=== PATIENT | female | born 1945 | race Caucasian/White ===

== ENCOUNTER 2016-10-11 08:26 | Emergency (ER) | payer MEDICARE ==
[~2016-10-11] VITALS: Wt 59.9 kg
[~2016-10-11 08:26] MED LIST: CITALOPRAM20 MG PO; ELITE MAGNESIUM1 TAB PO; FOSAMAX70 M1 PO; HYDROCHLOROTHIA25 MG PO; HYDROCODONE BIT1 T11 PO; LISINOPRIL2.5 MG PO; LOVASTATIN10 MG PO; MAGNESIUM; METFORMIN1000 MG PO; METOPROLOL25 MG PO; Motrin,Rufen800 MG PO; OMEGA-3 FISH1200 MG PO; Orphenadrine C100 MG PO; PLAVIX75 MG PO; PREDNICOT20 MG PO; PRILOSEC40 M1 PO; ROBITUSSIN AC 110 ML PO; SUPER B COMPLEX1 CAP PO; TOVIAZ4 MG PO; VIBRAMYCIN100 MG PO; VITAMIN D31000 IU PO
== END 2016-10-11 09:45 | disposition home or self-care (01) ==
LOC: ED 08:26
DX: S62.603A Fracture of unspecified phalanx of left middle finger, initial encounter for closed fracture (principal); F17.200 Nicotine dependence, unspecified, uncomplicated; Z88.0 Allergy status to penicillin; Z79.899 Other long term (current) drug therapy; W22.03XA Walked into furniture, initial encounter; Y93.9 Activity, unspecified; Y92.9 Unspecified place or not applicable; Y99.9 Unspecified external cause status

== ENCOUNTER → 2016-10-21 | Outpatient (CLI) | payer MEDICARE | END | disposition home or self-care (01) | LOC: RAD 10:09 | DX: S62.603D Fracture of unspecified phalanx of left middle finger, subsequent encounter for fracture with routine healing (principal); R53.83 Other fatigue; X58.XXXD Exposure to other specified factors, subsequent encounter ==

== ENCOUNTER → 2016-12-17 | Outpatient (CLI) | payer MEDICARE ==
[2016-12-17 09:22] LABS: EST GLOM FILT AFRICAN AMERICAN > 60 ml/min
== END | disposition home or self-care (01) ==
LOC: LAB 08:40
PROVIDERS: Internal Medicine
DX: M47.894 Other spondylosis, thoracic region (principal); M54.5 Low back pain; M54.6 Pain in thoracic spine

== ENCOUNTER → 2016-12-22 | Outpatient (CLI) | payer MEDICARE | END | disposition home or self-care (01) | LOC: CT 07:33 | DX: R42 Dizziness and giddiness (principal); R20.0 Anesthesia of skin ==

== ENCOUNTER 2017-10-12 19:45 | Inpatient (IN) | payer MEDICARE ==
[~2017-10-12] VITALS: Ht 152.4 cm; Wt 60.5 kg
--- NOTE | ~2017-10-12 | EKG ---
[place], [place] ELECTROCARDIOGRAM REPORT NAME: KARINA COLEY UNIT #: [id number] ROOM: 406 DOCTOR: MICHELL LOPEZ MD BIRTHDATE: [birth year] DOS: 10/12/2017 TIME: 2100. ASSESSMENT: Sinus rhythm, left ventricular hypertrophy, abnormal ECG. No prior EKGs to compare. Michell Lopez MD CM:EKGRPT:ELECTROCARDIOGRAM REPORT 09 20 MICHELL LOPEZ MD
--- NOTE | ~2017-10-12 | PR ---
[place], [place] PROGRESS NOTE [id number] UNIT #: [id number] ROOM: 406 DOCTOR: LELA FINLEY MD BIRTHDATE: [birth year] DOS: SUBJECTIVE: The patient is doing much better. She had taken extra clonidine and became hypotensive and was admitted. She does not have any new complaints of chest pains, palpitations or shortness of breath. OBJECTIVE: VITAL SIGNS: Graphic trend shows that she is afebrile, blood pressure is 140/69, pulse of 58, respirations 18, temperature 98.2. LUNGS: Clear. HEART: Regular. ABDOMEN: Soft. EXTREMITIES: Without any edema. ASSESSMENT AND PLAN: 1. Hypotension, medication induced, which has resolved. 2. History of benign hypertension. Restart a low dose lisinopril. 3. Type 2 diabetes mellitus. Blood sugar is not very well controlled. Restart metformin at a lower dose. 4. History of a transient ischemic attack. She had a CT scan of the head, which was negative this admission. LELA FINLEY MD CM:PNTRANS LELA FINLEY MD 10/14/17 0933 interface
--- NOTE | ~2017-10-12 | WRIGHTHP ---
[place], [place] PATIENT HISTORY AND PHYSICAL EXAM NAME: KARINA COLEY [facility] #: [id number] UNIT #: [id number] ROOM: 406 DOCTOR: VISHNU WESTON MD BIRTHDATE: [birth year] DOS: 10/12/2017 HISTORY OF PRESENT ILLNESS: The patient is a 72-year-old female with a past medical history of: 1. Benign essential hypertension. 2. History of orthostatic hypotension. 3. Echocardiogram showing moderate LVH and stage 1 diastolic dysfunction. The patient is with history of TIA. 4. History of mixed hyperlipidemia. The patient presented to the Emergency Department at [facility] feeling dizzy, lightheaded, and weak, but without fainting episodes. The patient found her blood pressure at home to be very low and it was 76 systolic over 62 diastolic on her machine at home. The patient was somewhat pale and lethargic in the Emergency Room. The patient apparently had taken an extra dose of clonidine at home by mistake in the morning. She took her first dose around 7 in the morning and the second dose around 9 in the morning. 5. For hypotension and being symptomatic and feeling unwell she was recommended for admission and further management. After admission, her clonidine was stopped and she is asymptomatic, but when she gets up her blood pressure still drops to around 75 systolic. The patient is ambulating normally in the hallways. HOME MEDICATIONS: The patient takes metformin, metoprolol, and Plavix at home. FAMILY HISTORY: Noncontributory. ALLERGIES: KNOWN ALLERGIES TO PENICILLIN. PHYSICAL EXAMINATION: GENERAL: Alert and oriented x 3, in no visible distress, slightly obese. HEENT AND NECK: Extraocular movements are intact. Sclerae are anicteric. Oral mucosa is moist and clean. No obvious facial weakness. Neck is supple without any lymphadenopathy. No thyromegaly. No JVD. No carotid arterial bruits. LUNGS: Clear to auscultation. No wheezing. No rhonchi. CARDIOVASCULAR SYSTEM: Heart rate is regular in rate and rhythm. S1 and S2 normally audible. No significant murmur or any other abnormal cardiac sounds. ABDOMEN: Soft, nontender. No obvious organomegaly. Bowel sounds are present. No obvious herniation. EXTREMITIES: Without significant cyanosis or edema. Warm to touch. CENTRAL NERVOUS SYSTEM: Alert and oriented x 3. Cranial nerves II-XII are intact. Speech is normal. The patient is able to move all extremities. Normal muscle strength. Deep tendon reflexes are equal on both sides. Plantars were downgoing. LABORATORY DATA: EKG with normal sinus rhythm, no acute abnormality. Urine drug screen was negative. CT of the chest without acute abnormality. CT of the head without acute abdomen any acute abnormality. Chest x-ray with no acute findings. Normal serum electrolytes except for potassium of 3.3. Normal CBC and platelets. [place], [place] PATIENT HISTORY AND PHYSICAL EXAM NAME: KARINA COLEY UNIT #: [id number] ROOM: [facility] DOCTOR: VISHNU WESTON MD BIRTHDATE: [birth year] IMPRESSION AND PLAN: 1. The patient with hypotension related to taking an extra dose of clonidine by mistake in the morning and she was symptomatic with lightheadedness, dizziness and weakness, which has all resolved after clonidine was stopped and she was hydrated with normal saline. The patient is presently asymptomatic, but she is still orthostatic. When she stands up, her blood pressure drops from 126 systolic to 70 diastolic, but without symptoms. The patient does have history of chronic orthostatic hypotension. I will keep her off the clonidine and blood pressure medications and at 3:00 p.m. check her blood pressure and orthostatics again and then decide to send her home if she is asymptomatic. 2. History of major depression, recurrent, mild, treated with citalopram. 3. History of transient ischemic attack in the past. The patient remains on Plavix, which she was taking at home. 4. History of mixed hyperlipidemia. 5. Prediabetes. Hyperglycemia with sugar of 225. I will check her blood sugars during her stay at the hospital. She is not taking any diabetic medications at present time. 6. Benign essential hypertension. 7. Elevated lactic acid level at admission has normalized. VISHNU WESTON MD CM:HISPHYS:PATIENT HISTORY AND PHYSICAL EXAMINATION 1010 1050 VISHNU WESTON MD 10/13/17 1049 interface
[2017-10-12 19:55] VITALS: BP 76/62
[2017-10-12 20:09] VITALS: BP 90/62
[2017-10-12 20:33] LABS: BASO # 0.1 10*3/uL (0.0-0.1); BASO % 0.8 % (0.0-1.0); EOS # 1.2 10*3/uL (0.0-0.4); EOS % 11.1 % (1.0-4.0); HEMATOCRIT 40.7 % (37.0-47.0); HEMOGLOBIN 13.3 g/dl (12.0-16.0); LYMPH # 2.1 10*3/uL (1.3-4.4); LYMPH % 19.8 % (27.0-41.0); MEAN CELL VOLUME 95.3 fl (81.0-99.0); MEAN CORPUSCULAR HGB 31.1 pg (27.0-31.0); MEAN CORPUSCULAR HGB CONC 32.7 g/dl (33.0-37.0); MEAN PLATELET VOLUME 11.5 fl (9.6-12.3); MONO # 0.6 10*3/uL (0.1-1.0); MONO % 5.7 % (3.0-9.0); NEUT # 6.5 10*3/uL (2.3-7.9); NEUT % 62.2 % (47.0-73.0); PLATELET COUNT AUTOMATED 232 10*3/uL (130-400); RED BLOOD COUNT 4.27 10*6/uL (4.10-5.10); RED CELL DISTRI WIDTH 12.8 % (0-14.5); WHITE BLOOD COUNT 10.5 10*3/uL (4.8-10.8)
[2017-10-12 20:43] LABS: ACT PARTIAL THROMBO TIME 23.6 SECONDS (20.8-31.5)
[2017-10-12 20:48] LABS: ALKALINE PHOSPHATASE 90 U/L (45-117); BUN 7 mg/dl (7-24); CHLORIDE 99 mmol/L (98-107); CREATININE 0.93 mg/dL (0.55-1.02); LIPASE 218 U/L (73-393); POTASSIUM 3.3 mmol/L (3.5-5.1); SGOT/AST 19 IU/L (3-35); SGPT/ALT 16 U/L (12-78); SODIUM 138 mmol/L (136-145); TOTAL PROTEIN 6.8 gm/dL (6.4-8.2); TROPONIN I < 0.015 ng/ml (<0.045)
[2017-10-12 21:15] VITALS: BP 153/91
[2017-10-12 22:00] VITALS: BP 130/70
[2017-10-12 22:13] LABS: BILIRUBIN NEGATIVE (NEGATIVE); BLOOD TRACE-LYSED (NEGATIVE); CLARITY SL CLOUDY (CLEAR); COLOR YELLOW (YELLOW); GLUCOSE NEGATIVE (NEGATIVE); KETONE NEGATIVE (NEGATIVE); LEUKO ESTERASE NEGATIVE (NEGATIVE); NITRITE NEGATIVE (NEGATIVE); PH 6.5 (5.0-9.0); SPECIFIC GRAVITY <= 1.005 (1.005-1.030); UROBILINOGEN 0.2 E.U./dl (0.2-1.0)
[2017-10-12 22:20] LABS: URINE AMPHETAMINES < 1000 (1000ng/ml); URINE BARBITURATES < 200 (200ng/ml); URINE BENZODIAZEPINES < 200 (200ng/ml); URINE CANNABINOIDS (THC) < 50 (50ng/ml); URINE COCAINE < 300 (300ng/ml); URINE METHADONE < 300 (300ng/ml); URINE OPIATES < 300 (300ng/ml)
[2017-10-12 22:27] LABS: URINE PHENCYCLIDINE < 25 (25ng/ml)
[2017-10-12 22:30] VITALS: BP 133/65
[2017-10-12 22:50] LABS: RBC 0-2 rbc/hpf (0-2); WBC 0-2 wbc/hpf (0-5)
[2017-10-12 23:42] VITALS: BP 144/75
[2017-10-13] VITALS (9 sets, daily range): BP systolic 70–154; BP diastolic 52–77
[2017-10-13] MEDS ORDERED: CELEXA20 MG PO (00:46)
[2017-10-13] MEDS ORDERED: CLONIDINE HCL0.1 MG PO (00:46)
[2017-10-13] MEDS ORDERED: METFORMIN500 MG PO (16:13)
[2017-10-14] VITALS: BP 158/60
[2017-10-14 08:00] VITALS: BP 140/69
[2017-10-14] MEDS ORDERED: METFORMIN500 MG PO (09:09)
[2017-10-14] MEDS ORDERED: ZESTRIL2.5 MG PO (09:10)
== END 2017-10-14 11:10 | disposition home or self-care (01) | DRG 918 ==
LOC: ED 19:45 → 4E 23:27 → EDHOLD 23:27 → 4E 23:44
PROVIDERS: Nurse Practitioner Family
DX: T46.5X1A Poisoning by other antihypertensive drugs, accidental (unintentional), initial encounter (principal); E11.65 Type 2 diabetes mellitus with hyperglycemia; I95.2 Hypotension due to drugs; F33.0 Major depressive disorder, recurrent, mild; F17.200 Nicotine dependence, unspecified, uncomplicated; E78.2 Mixed hyperlipidemia; I10 Essential (primary) hypertension; Z79.899 Other long term (current) drug therapy; Z88.0 Allergy status to penicillin; Z79.84 Long term (current) use of oral hypoglycemic drugs; Z87.81 Personal history of (healed) traumatic fracture; Z86.73 Personal history of transient ischemic attack (TIA), and cerebral infarction without residual deficits; Z90.711 Acquired absence of uterus with remaining cervical stump; Y92.89 Other specified places as the place of occurrence of the external cause

== ENCOUNTER 2018-04-21 12:17 | Emergency (ER) | payer MEDICARE ==
[~2018-04-21] VITALS: Ht 152.4 cm; Wt 56.2 kg
[~2018-04-21 12:17] MED LIST changes: +CELEXA20 MG PO; +CLONIDINE HCL0.1 MG PO; +METFORMIN500 MG PO; +ZESTRIL2.5 MG PO
[2018-04-21] MEDS ORDERED: METOPROLOL SUCC25 M2 PO (12:20)
== END 2018-04-21 15:20 | disposition home or self-care (01) ==
LOC: ED 12:17
DX: S51.811A Laceration without foreign body of right forearm, initial encounter (principal); F17.200 Nicotine dependence, unspecified, uncomplicated; Z88.0 Allergy status to penicillin; Z79.899 Other long term (current) drug therapy; W01.0XXA Fall on same level from slipping, tripping and stumbling without subsequent striking against object, initial encounter; Y93.01 Activity, walking, marching and hiking; Y92.89 Other specified places as the place of occurrence of the external cause; Y99.8 Other external cause status

== ENCOUNTER → 2018-08-01 | Outpatient (CLI) | payer MEDICARE ==
[~2018-08-01] MED LIST changes: +METOPROLOL SUCC25 M2 PO
== END ==
LOC: MRI 10:21
DX: M84.351A Stress fracture, right femur, initial encounter for fracture (principal); M25.461 Effusion, right knee; X58.XXXA Exposure to other specified factors, initial encounter; Y93.89 Activity, other specified; Y92.89 Other specified places as the place of occurrence of the external cause; Y99.8 Other external cause status

== ENCOUNTER → 2018-11-01 | Outpatient (CLI) | payer MEDICARE | END | disposition home or self-care (01) | LOC: RAD 11:08 | DX: M81.0 Age-related osteoporosis without current pathological fracture (principal); M19.90 Unspecified osteoarthritis, unspecified site; E11.9 Type 2 diabetes mellitus without complications; E55.9 Vitamin D deficiency, unspecified; F17.200 Nicotine dependence, unspecified, uncomplicated; Z90.710 Acquired absence of both cervix and uterus; Z78.0 Asymptomatic menopausal state ==

== ENCOUNTER → 2018-11-15 | Outpatient (CLI) | payer MEDICARE ==
[~2018-11-15] MED LIST changes: +PREDNISONE50 MG PO; +VALTREX1000 MG PO
[2018-11-15 09:00] VITALS: BP 134/56
== END | disposition home or self-care (01) ==
LOC: INJECTION 08:58
DX: M81.0 Age-related osteoporosis without current pathological fracture (principal); I10 Essential (primary) hypertension; E11.9 Type 2 diabetes mellitus without complications; K21.9 Gastro-esophageal reflux disease without esophagitis; E78.00 Pure hypercholesterolemia, unspecified; F17.210 Nicotine dependence, cigarettes, uncomplicated; Z86.73 Personal history of transient ischemic attack (TIA), and cerebral infarction without residual deficits; Z90.711 Acquired absence of uterus with remaining cervical stump

== ENCOUNTER → 2019-11-22 | Day surgery (SDC) | payer MEDICARE ==
[~2019-11-22] MED LIST changes: +ASPIRIN CHEWABL81 MG PO; +MIRTAZAPINE15 M1 PO; +NEURONTIN100 MG PO; +OYSTER SHELL 51 EAC2 PO; +PROTONIX IV40 MG IV; +SIMVASTATIN5 MG PO
[2019-11-22 09:40] VITALS: BP 142/44
[2019-11-22 10:55] VITALS: BP 133/55
[2019-11-22 11:10] VITALS: BP 127/46
[2019-11-22 11:20] VITALS: BP 132/77
== END | disposition home or self-care (01) ==
LOC: SDC 11-21 14:45
DX: K92.1 Melena (principal); D12.3 Benign neoplasm of transverse colon; K22.2 Esophageal obstruction; K29.50 Unspecified chronic gastritis without bleeding; K57.30 Diverticulosis of large intestine without perforation or abscess without bleeding; I10 Essential (primary) hypertension; I25.10 Atherosclerotic heart disease of native coronary artery without angina pectoris; E11.9 Type 2 diabetes mellitus without complications; F17.210 Nicotine dependence, cigarettes, uncomplicated; Z98.890 Other specified postprocedural states; Z86.73 Personal history of transient ischemic attack (TIA), and cerebral infarction without residual deficits; Z79.899 Other long term (current) drug therapy

== ENCOUNTER → 2020-02-27 | Outpatient (CLI) | payer MEDICARE ==
[2020-02-27 10:19] LABS: HEMATOCRIT 43.6 % (37.0-47.0); MEAN CELL VOLUME 97.5 fl (81.0-99.0); MEAN CORPUSCULAR HGB 31.8 pg (27.0-31.0); MEAN CORPUSCULAR HGB CONC 32.6 g/dl (33.0-37.0); MEAN PLATELET VOLUME 11.2 fl (9.6-12.3); PLATELET COUNT AUTOMATED 232 10*3/uL (130-400); RED BLOOD COUNT 4.47 10*6/uL (4.10-5.10); RED CELL DISTRI WIDTH 13.3 % (0-14.5); WHITE BLOOD COUNT 9.9 10*3/uL (4.8-10.8)
[2020-02-27 10:47] LABS: CHLORIDE 104 mmol/L (98-107); POTASSIUM 4.6 mmol/L (3.5-5.1); SODIUM 139 mmol/L (136-145)
[2020-02-27 11:00] LABS: BASOPHILS 2 % (0-1); PLATELET SUFFICIENCY NORMAL (NORMAL); TOTAL CELLS COUNTED 100 #CELLS
[2020-02-27 11:02] LABS: ALBUMIN 3.4 gm/dl (3.1-4.5); ALKALINE PHOSPHATASE 107 U/L (45-117); BUN 14 mg/dl (7-24); CHOLESTEROL 196 mg/dL (<200); CREATININE 0.78 mg/dL (0.55-1.02); FREE T4 1.15 ng/dl (0.76-1.46); HDL CHOLESTEROL 38 mg/dl (40-60); LDL CHOLESTEROL 123 mg/dL (9-159); SGOT/AST 15 IU/L (3-35); SGPT/ALT 24 U/L (12-78); TOTAL PROTEIN 7.4 gm/dL (6.4-8.2); TRIGLYCERIDES 177 mg/dl (<150); VLDL CHOLESTEROL 35 mg/dL (6-40)
[2020-02-27 11:14] LABS: VITAMIN D, 25-HYDROXY 40.4 ng/mL (30-100)
== END | disposition home or self-care (01) ==
LOC: LAB 09:27
PROVIDERS: Internal Medicine
DX: Z00.00 Encounter for general adult medical examination without abnormal findings (principal); E11.9 Type 2 diabetes mellitus without complications; I10 Essential (primary) hypertension; E78.2 Mixed hyperlipidemia; E55.9 Vitamin D deficiency, unspecified

== ENCOUNTER → 2020-02-28 | Outpatient (CLI) | payer MEDICARE | END | disposition home or self-care (01) | LOC: US 08:05 | DX: I73.9 Peripheral vascular disease, unspecified (principal); I10 Essential (primary) hypertension; E11.9 Type 2 diabetes mellitus without complications; F17.200 Nicotine dependence, unspecified, uncomplicated ==

== ENCOUNTER → 2020-03-12 | Outpatient (CLI) | payer MEDICARE | END | disposition home or self-care (01) | LOC: CT 12:37 | DX: I73.9 Peripheral vascular disease, unspecified (principal) ==

== ENCOUNTER 2021-01-15 15:20 | Inpatient (IN) | payer MEDICARE ==
[~2021-01-15] VITALS: Ht 152.4 cm; Wt 58.5 kg
[2021-01-15 15:38] VITALS: BP 125/43
[2021-01-15 15:58] LABS: HEMATOCRIT 42.1 % (37.0-47.0); MEAN CELL VOLUME 96.3 fl (81.0-99.0); MEAN CORPUSCULAR HGB 31.1 pg (27.0-31.0); MEAN CORPUSCULAR HGB CONC 32.3 g/dl (33.0-37.0); MEAN PLATELET VOLUME 11.1 fl (9.6-12.3); PLATELET COUNT AUTOMATED 270 10*3/uL (130-400); RED BLOOD COUNT 4.37 10*6/uL (4.10-5.10); RED CELL DISTRI WIDTH 13.1 % (0-14.5)
[2021-01-15 16:03] VITALS: BP 142/51
[2021-01-15 16:11] LABS: ACT PARTIAL THROMBO TIME 25.4 SECONDS (20.0-32.1)
[2021-01-15 16:12] LABS: ALBUMIN 3.7 gm/dl (3.1-4.5); ALKALINE PHOSPHATASE 107 U/L (45-117); BUN 15 mg/dl (7-24); CHLORIDE 106 mmol/L (98-107); CREATININE 1.08 mg/dL (0.55-1.02); LIPASE 281 U/L (73-393); POTASSIUM 3.9 mmol/L (3.5-5.1); SGOT/AST 15 IU/L (3-35); SGPT/ALT 19 U/L (12-78); SODIUM 138 mmol/L (136-145); TOTAL PROTEIN 7.8 gm/dL (6.4-8.2)
[2021-01-15 16:13] LABS: TROPONIN I < 0.015 ng/ml (<0.045)
[2021-01-15 16:22] LABS: BASOPHILS 2 % (0-1); TOTAL CELLS COUNTED 100 #CELLS
[2021-01-15 16:23] LABS: OVALOCYTES FEW; PLATELET SUFFICIENCY NORMAL (NORMAL)
[2021-01-15 17:33] VITALS: BP 120/51
[2021-01-15 18:48] VITALS: BP 118/51
[2021-01-15 20:00] VITALS: BP 139/69
[2021-01-15] MEDS ORDERED: GLUCOPHAGE500 M1 PO (20:13)
[2021-01-15] MEDS ORDERED: LOPRESSOR25 MG PO (20:13)
[2021-01-15] MEDS ORDERED: PROTONIX40 MG PO (20:13)
[2021-01-15] MEDS ORDERED: REMERON15 M2 PO (20:14)
[2021-01-16] VITALS: BP 104/74
[2021-01-16 12:00] VITALS: BP 102/60
[2021-01-16 16:00] VITALS: BP 102/60
[2021-01-16 20:00] VITALS: BP 126/58
[2021-01-17] VITALS: BP 121/42
[2021-01-17 08:00] VITALS: BP 129/69
[2021-01-17] MEDS ORDERED: FLONASE ALLERG9.9 ML NAS (08:34)
[2021-01-17] MEDS ORDERED: DOXYCYCLINE100 M3 PO (08:34)
== END 2021-01-17 09:12 | disposition home or self-care (01) | DRG 69 ==
LOC: ED 15:20 → EDHOLD 18:37 → 5E 18:37
PROVIDERS: Emergency Medicine; ADMIT Internal Medicine; ATTEND Internal Medicine
DX: G45.9 Transient cerebral ischemic attack, unspecified (principal); I11.9 Hypertensive heart disease without heart failure; F17.210 Nicotine dependence, cigarettes, uncomplicated; E11.51 Type 2 diabetes mellitus with diabetic peripheral angiopathy without gangrene; E78.2 Mixed hyperlipidemia; Z88.0 Allergy status to penicillin; Z90.710 Acquired absence of both cervix and uterus; Z86.73 Personal history of transient ischemic attack (TIA), and cerebral infarction without residual deficits; Z79.01 Long term (current) use of anticoagulants

== ENCOUNTER → 2021-02-19 | Outpatient (CLI) | payer MEDICARE ==
[~2021-02-19] MED LIST changes: +DOXYCYCLINE100 M3 PO; +FLONASE ALLERG9.9 ML NAS; +GLUCOPHAGE500 M1 PO; +LOPRESSOR25 MG PO; +PROTONIX40 MG PO; +REMERON15 M2 PO
== END | disposition home or self-care (01) ==
LOC: RAD 08:27
PROVIDERS: ATTEND Internal Medicine
DX: K74.60 Unspecified cirrhosis of liver (principal); E11.9 Type 2 diabetes mellitus without complications; Z90.710 Acquired absence of both cervix and uterus

== ENCOUNTER → 2021-03-20 | Outpatient (CLI) | payer MEDICARE | END | disposition home or self-care (01) | LOC: US 08:07 | PROVIDERS: ATTEND Internal Medicine | DX: K74.60 Unspecified cirrhosis of liver (principal); I10 Essential (primary) hypertension; E11.9 Type 2 diabetes mellitus without complications ==

== ENCOUNTER → 2021-04-07 | Outpatient (CLI) | payer MEDICARE ==
[2021-04-08 04:05] LABS: HEP B CORE AB, IGM Negative (Negative); HEPATITIS B SURFACE AG Negative (Negative); HEPATITIS C VIRUS ANTIBODY 0.4 s/co (0.0-0.9)
== END | disposition home or self-care (01) ==
LOC: LAB 09:59
PROVIDERS: ATTEND Internal Medicine
DX: K75.81 Nonalcoholic steatohepatitis (NASH) (principal)

== ENCOUNTER → 2021-07-28 | Outpatient (CLI) | payer MEDICARE | END | disposition home or self-care (01) | LOC: LAB 09:35 | PROVIDERS: ATTEND Internal Medicine | DX: J43.8 Other emphysema (principal) ==

== ENCOUNTER → 2022-04-27 | Outpatient (CLI) | payer MEDICARE ==
[2022-04-27 08:47] LABS: HEMATOCRIT 43.4 % (37.0-47.0); MEAN CELL VOLUME 95.6 fl (81.0-99.0); MEAN CORPUSCULAR HGB 30.8 pg (27.0-31.0); MEAN CORPUSCULAR HGB CONC 32.3 g/dl (33.0-37.0); MEAN PLATELET VOLUME 11.6 fl (9.6-12.3); PLATELET COUNT AUTOMATED 240 10*3/uL (130-400); RED BLOOD COUNT 4.54 10*6/uL (4.10-5.10); RED CELL DISTRI WIDTH 13.1 % (0-14.5); WHITE BLOOD COUNT 12.5 10*3/uL (4.8-10.8)
[2022-04-27 08:52] LABS: MANUAL DIFF REFLEX YES
[2022-04-27 09:07] LABS: BUN 10 mg/dl (7-24); CHLORIDE 104 mmol/L (98-107); CHOLESTEROL 167 mg/dL (<200); CREATININE 0.85 mg/dL (0.55-1.02); POTASSIUM 3.8 mmol/L (3.5-5.1); SGOT/AST 22 IU/L (3-35); SGPT/ALT 18 U/L (12-78); SODIUM 139 mmol/L (136-145); T3 UPTAKE 32 % (31-39); TRIGLYCERIDES 243 mg/dl (<150)
[2022-04-27 09:14] LABS: ALKALINE PHOSPHATASE 101 U/L (45-117); FREE T4 1.15 ng/dl (0.76-1.46); LDL CHOLESTEROL 90 mg/dL (9-159); TOTAL PROTEIN 7.4 gm/dL (6.4-8.2)
[2022-04-27 09:18] LABS: BASOPHILS 1 % (0-1); PLATELET SUFFICIENCY NORMAL (NORMAL); TOTAL CELLS COUNTED 100 #CELLS
[2022-04-27 09:42] LABS: VITAMIN D, 25-HYDROXY 88.9 ng/mL (30-100)
== END | disposition home or self-care (01) ==
LOC: LAB 08:11 → CT 09:00
PROVIDERS: ATTEND Internal Medicine
DX: E11.51 Type 2 diabetes mellitus with diabetic peripheral angiopathy without gangrene (principal); K74.60 Unspecified cirrhosis of liver; E55.9 Vitamin D deficiency, unspecified; I10 Essential (primary) hypertension; E78.2 Mixed hyperlipidemia; Z23 Encounter for immunization; Z01.810 Encounter for preprocedural cardiovascular examination; Z13.89 Encounter for screening for other disorder; Z13.0 Encounter for screening for diseases of the blood and blood-forming organs and certain disorders involving the immune mechanism; Z13.1 Encounter for screening for diabetes mellitus; Z13.21 Encounter for screening for nutritional disorder; Z13.220 Encounter for screening for lipoid disorders; Z13.228 Encounter for screening for other metabolic disorders; Z13.29 Encounter for screening for other suspected endocrine disorder; Z13.6 Encounter for screening for cardiovascular disorders; Z13.9 Encounter for screening, unspecified

== ENCOUNTER → 2022-05-11 | Outpatient (CLI) | payer MEDICARE | LOC: CARD 00:11 | PROVIDERS: ATTEND Internal Medicine | DX: R07.9 Chest pain, unspecified (principal); I10 Essential (primary) hypertension ==

== ENCOUNTER → 2022-07-15 | Outpatient (CLI) | payer MEDICARE ==
[2022-07-15 15:43] LABS: HEMATOCRIT 39.7 % (37.0-47.0); MEAN CORPUSCULAR HGB 31.6 pg (27.0-31.0); MEAN CORPUSCULAR HGB CONC 32.2 g/dl (33.0-37.0); MEAN PLATELET VOLUME 11.3 fl (9.6-12.3); PLATELET COUNT AUTOMATED 203 10*3/uL (130-400); RED BLOOD COUNT 4.05 10*6/uL (4.10-5.10); RED CELL DISTRI WIDTH 13.2 % (0-14.5); WHITE BLOOD COUNT 12.8 10*3/uL (4.8-10.8)
[2022-07-15 15:46] LABS: MANUAL DIFF REFLEX YES
[2022-07-15 16:27] LABS: BUN 7 mg/dl (7-24); CHLORIDE 105 mmol/L (98-107); CHOLESTEROL 158 mg/dL (<200); CREATININE 0.83 mg/dL (0.55-1.02); LDL CHOLESTEROL 56 mg/dL (9-159); POTASSIUM 3.7 mmol/L (3.5-5.1); SGOT/AST 17 IU/L (3-35); SGPT/ALT 21 U/L (12-78); SODIUM 138 mmol/L (136-145); TRIGLYCERIDES 398 mg/dl (<150)
[2022-07-15 16:31] LABS: ALKALINE PHOSPHATASE 80 U/L (45-117); FREE T4 1.07 ng/dl (0.76-1.46)
[2022-07-15 16:57] LABS: BASOPHILS 3 % (0-1); PLATELET SUFFICIENCY NORMAL (NORMAL); POLYCHROMASIA SLIGHT; TOTAL CELLS COUNTED 100 #CELLS
[2022-07-15 17:06] LABS: VITAMIN D, 25-HYDROXY 60.1 ng/mL (30-100)
== END | disposition home or self-care (01) ==
LOC: LAB 15:23
PROVIDERS: ATTEND Internal Medicine
DX: A69.20 Lyme disease, unspecified (principal)

== ENCOUNTER 2023-11-02 13:22 | Emergency (ER) | payer MEDICARE ==
[~2023-11-02] VITALS: Ht 152.4 cm; Wt 59.0 kg
[2023-11-02 14:13] LABS: BASO # 0.1 10*3/uL (0.0-0.1); BASO % 0.6 % (0.0-1.0); EOS % 11.8 % (1.0-4.0); LYMPH # 0.8 10*3/uL (1.3-4.4); LYMPH % 9.5 % (27.0-41.0); MEAN CELL VOLUME 98.9 fl (81.0-99.0); MEAN CORPUSCULAR HGB 32.2 pg (27.0-31.0); MEAN CORPUSCULAR HGB CONC 32.6 g/dl (33.0-37.0); MEAN PLATELET VOLUME 11.3 fl (9.6-12.3); MONO # 0.5 10*3/uL (0.1-1.0); MONO % 5.5 % (3.0-9.0); NEUT # 6.3 10*3/uL (2.3-7.9); NEUT % 72.3 % (47.0-73.0); PLATELET COUNT AUTOMATED 195 10*3/uL (130-400); RED BLOOD COUNT 4.35 10*6/uL (4.10-5.10); RED CELL DISTRI WIDTH 13.1 % (0-14.5); WHITE BLOOD COUNT 8.7 10*3/uL (4.8-10.8)
[2023-11-02 14:33] LABS: ACT PARTIAL THROMBO TIME 23.4 SECONDS (20.0-32.1)
[2023-11-02 14:37] LABS: ALKALINE PHOSPHATASE 71 U/L (46-116); BUN 8 mg/dl (9-23); CHLORIDE 100 mmol/L (98-107); LIPASE 56 U/L (12-53); POTASSIUM 3.9 mmol/L (3.4-5.1); SGPT/ALT 20 U/L (5-49); TOTAL PROTEIN 7.3 gm/dL (6.0-8.0)
[2023-11-02] MEDS ORDERED: PLAVIX75 M1 PO (15:11)
[2023-11-02] MEDS ORDERED: METFORMIN XR500 MG PO (15:11)
[2023-11-02] MEDS ORDERED: TOPROL XL25 MG PO (15:13)
[2023-11-02] MEDS ORDERED: SIMVASTATIN5 MG PO (15:14)
[2023-11-02] MEDS ORDERED: PROTONIX40 MG PO (15:14)
[2023-11-02] MEDS ORDERED: MIRTAZAPINE15 M2 PO (15:14)
[2023-11-02] MEDS ORDERED: ALDACTONE25 MG PO (15:15)
[2023-11-02] MEDS ORDERED: CITALOPRAM20 MG PO (15:15)
[2023-11-02] MEDS ORDERED: ZINC30 M1 PO (15:16)
[2023-11-02] MEDS ORDERED: ASPIRIN81 M1 PO (15:16)
[2023-11-02] MEDS ORDERED: VITAMIN E400 UNIT PO (15:17)
[2023-11-02] MEDS ORDERED: COLACE100 MG PO (15:23)
[2023-11-02] MEDS ORDERED: VITAMIN D350 MCG PO (15:23)
[2023-11-02] MEDS ORDERED: VITAMIN C1000 M5 PO (15:23)
[2023-11-02 16:54] LABS: BILIRUBIN Negative (Negative); BLOOD Negative (Negative); CLARITY Cloudy (Clear); COLOR Yellow (Yellow); GLUCOSE Negative (Negative); KETONE Negative (Negative); LEUKO ESTERASE Negative (Negative); NITRITE Negative (Negative)
[2023-11-02 17:05] LABS: BACTERIA TRACE; MUCOUS 1+; RBC 0-2 rbc/hpf (0-2)
[2023-11-02] MEDS ORDERED: ONDANSETRON4 MG SL (18:31)
[2023-11-02] MEDS ORDERED: OMNICEF300 MG PO (18:31)
== END 2023-11-02 18:40 | disposition home or self-care (01) ==
LOC: ED 13:22
PROVIDERS: Family Medicine
DX: R55 Syncope and collapse (principal); Z20.822 Contact with and (suspected) exposure to COVID-19; D68.318 Other hemorrhagic disorder due to intrinsic circulating anticoagulants, antibodies, or inhibitors; N39.0 Urinary tract infection, site not specified; R11.10 Vomiting, unspecified; R19.7 Diarrhea, unspecified; I10 Essential (primary) hypertension; E11.9 Type 2 diabetes mellitus without complications; E78.00 Pure hypercholesterolemia, unspecified; Z88.0 Allergy status to penicillin; Z98.890 Other specified postprocedural states; Z90.711 Acquired absence of uterus with remaining cervical stump; W19.XXXA Unspecified fall, initial encounter

== ENCOUNTER → 2024-01-27 | Outpatient (CLI) | payer MEDICARE ==
[~2024-01-27] MED LIST changes: +ALDACTONE25 MG PO; +ASPIRIN81 M1 PO; +COLACE100 MG PO; +METFORMIN XR500 MG PO; +MIRTAZAPINE15 M2 PO; +OMNICEF300 MG PO; +ONDANSETRON4 MG SL; +PLAVIX75 M1 PO; +TOPROL XL25 MG PO; +VITAMIN C1000 M5 PO; +VITAMIN D350 MCG PO; +VITAMIN E400 UNIT PO; +ZINC30 M1 PO
[2024-01-27 08:22] LABS: HEMATOCRIT 44.4 % (37.0-47.0); MEAN CORPUSCULAR HGB CONC 32.7 g/dl (33.0-37.0); MEAN PLATELET VOLUME 10.5 fl (9.6-12.3); PLATELET COUNT AUTOMATED 259 10*3/uL (130-400); RED BLOOD COUNT 4.53 10*6/uL (4.10-5.10); RED CELL DISTRI WIDTH 12.4 % (0-14.5); WHITE BLOOD COUNT 13.1 10*3/uL (4.8-10.8)
[2024-01-27 08:24] LABS: MANUAL DIFF REFLEX YES
[2024-01-27 08:48] LABS: ATYPICAL LYMPHS 1 % (0-0); BASOPHILS 3 % (0-1); TOTAL CELLS COUNTED 100 #CELLS
[2024-01-27 08:49] LABS: PLATELET SUFFICIENCY NORMAL (NORMAL); POLYCHROMASIA SLIGHT
[2024-01-27 09:06] LABS: BUN 7 mg/dl (9-23); CHLORIDE 98 mmol/L (98-107)
== END | disposition home or self-care (01) ==
LOC: LAB 08:10
PROVIDERS: ATTEND Internal Medicine
DX: I10 Essential (primary) hypertension (principal); R53.81 Other malaise

== ENCOUNTER → 2024-02-04 | Outpatient (CLI) | payer MEDICARE | END | disposition home or self-care (01) | LOC: LAB 15:20 | PROVIDERS: ATTEND Internal Medicine | DX: E13.8 Other specified diabetes mellitus with unspecified complications (principal) ==

== ENCOUNTER → 2024-12-08 | Outpatient (CLI) | payer MEDICARE ==
[2024-12-08 09:17] LABS: HEMATOCRIT 44.7 % (37.0-47.0); MEAN CELL VOLUME 98.9 fl (81.0-99.0); MEAN CORPUSCULAR HGB 32.1 pg (27.0-31.0); MEAN CORPUSCULAR HGB CONC 32.4 g/dl (33.0-37.0); MEAN PLATELET VOLUME 10.9 fl (9.6-12.3); PLATELET COUNT AUTOMATED 262 10*3/uL (130-400); RED BLOOD COUNT 4.52 10*6/uL (4.10-5.10); RED CELL DISTRI WIDTH 12.4 % (0-14.5); WHITE BLOOD COUNT 15.2 10*3/uL (4.8-10.8)
[2024-12-08 09:18] LABS: MANUAL DIFF REFLEX YES
[2024-12-08 09:47] LABS: ALKALINE PHOSPHATASE 88 U/L (46-116); BUN 11 mg/dl (9-23); CHLORIDE 99 mmol/L (98-107); CHOLESTEROL 198 mg/dL (<200); FREE T4 1.15 ng/dl (0.89-1.76); LDL CHOLESTEROL 121 mg/dL (9-159); POTASSIUM 3.9 mmol/L (3.4-5.1); SGPT/ALT 10 U/L (5-49); TOTAL PROTEIN 7.5 gm/dL (6.0-8.0); TRIGLYCERIDES 174 mg/dl (<150)
[2024-12-08 10:03] LABS: BASOPHILS 1 % (0-1); PLATELET SUFFICIENCY NORMAL (NORMAL); TOTAL CELLS COUNTED 100 #CELLS
[2024-12-08 10:58] LABS: VITAMIN D, 25-HYDROXY 49.1 ng/mL (30-100)
== END | disposition home or self-care (01) ==
LOC: LAB 08:51 → US 09:30
PROVIDERS: ATTEND Internal Medicine
DX: K74.60 Unspecified cirrhosis of liver (principal); I10 Essential (primary) hypertension; E86.0 Dehydration; E11.65 Type 2 diabetes mellitus with hyperglycemia; R53.83 Other fatigue; Z90.49 Acquired absence of other specified parts of digestive tract; Z90.710 Acquired absence of both cervix and uterus

== ENCOUNTER → 2025-02-12 | Outpatient (CLI) | payer MEDICARE | END | disposition home or self-care (01) | LOC: LAB 09:29 | PROVIDERS: ATTEND Internal Medicine | DX: Z13.0 Encounter for screening for diseases of the blood and blood-forming organs and certain disorders involving the immune mechanism (principal) ==

== ENCOUNTER → 2025-02-15 | Outpatient (CLI) | payer MEDICARE ==
[~2025-02-15] MED LIST changes: +IOHEXOL 350 MG/ML 100 ML VIAL IV ONE; +SODIUM CHLORIDE 0.9% 100 ML BAG IV ONE
== END | disposition home or self-care (01) ==
LOC: CT 00:06 → LAB 00:06 → CT 10:00
PROVIDERS: ATTEND Internal Medicine
DX: I70.213 Atherosclerosis of native arteries of extremities with intermittent claudication, bilateral legs (principal)

== ENCOUNTER → 2025-08-09 | Outpatient (CLI) | payer MEDICARE ==
[~2025-08-09] MED LIST changes: -IOHEXOL 350 MG/ML 100 ML VIAL IV ONE; -SODIUM CHLORIDE 0.9% 100 ML BAG IV ONE
[2025-08-09 10:29] LABS: MEAN CELL VOLUME 99.3 fl (81.0-99.0); MEAN CORPUSCULAR HGB 32.2 pg (27.0-31.0); MEAN PLATELET VOLUME 10.7 fl (9.6-12.3); NUCLEATED RED BLOOD CELL 0.0 % (0.0-0.0); NUCLEATED RED BLOOD CELL 0.0 10*3/uL (0.0-0.0); PLATELET COUNT AUTOMATED 242 10*3/uL (130-400); RED CELL DISTRI WIDTH 13.0 % (0-14.5)
[2025-08-09 11:58] LABS: PLATELET SUFFICIENCY NORMAL (NORMAL)
== END | disposition home or self-care (01) ==
LOC: LAB 10:10
PROVIDERS: ATTEND Internal Medicine
DX: Z13.89 Encounter for screening for other disorder (principal); R79.82 Elevated C-reactive protein (CRP); R70.0 Elevated erythrocyte sedimentation rate; R79.9 Abnormal finding of blood chemistry, unspecified; R79.89 Other specified abnormal findings of blood chemistry; J30.9 Allergic rhinitis, unspecified

== ENCOUNTER → 2025-09-03 | Outpatient (CLI) | payer MEDICARE | END | disposition home or self-care (01) | LOC: LAB 08:51 | PROVIDERS: ATTEND Internal Medicine | DX: D72.10 Eosinophilia, unspecified (principal); Z13.0 Encounter for screening for diseases of the blood and blood-forming organs and certain disorders involving the immune mechanism; Z13.1 Encounter for screening for diabetes mellitus; Z13.220 Encounter for screening for lipoid disorders; Z13.228 Encounter for screening for other metabolic disorders; Z13.29 Encounter for screening for other suspected endocrine disorder; Z13.6 Encounter for screening for cardiovascular disorders; Z13.89 Encounter for screening for other disorder; Z13.9 Encounter for screening, unspecified; Z79.899 Other long term (current) drug therapy ==